=== PATIENT | female | born 1945 | race Caucasian/White ===

== ENCOUNTER 2024-11-29 10:57 | Inpatient (IN) | payer OTHER ==
[~2024-11-29] VITALS: Ht 160 cm; Wt 119.0 kg
--- NOTE | 2024-11-29 11:22 | ED.PDOC ---
GI ASSESSMENT HPI Comments 79y F who presents to the ED for chief complaint of diarrhea. - pt states she recently returned from 16 day cruise from [place] last Sunday and states that the following day Sunday is her onset of symptoms of diarrhea. - pt describes the diarrhea as "hollins and watery" and states she has to go to the restroom, whenever she stands up - pt states she thinks she had C Diff associated diarrhea because last time she had similar diarrhea, she states he was dx with C Diff she does said she has similar diarrhea. - pt denies any associated nausea, vomiting, fever, cough, chills, dysuria, hematuria, or abdominal pain. - pt otherwise states she feels dehydrated in the ED, - pt denies use of any current antibiotics at this time Past Medical History: AFIB, CHF, hyperlipidemia Past Surgical History: pacemaker, appendectomy, cholecystectomy medications: Coumadin, patient has stopped taking her Lasix for few days allergies: nkda Social History: denies tobacco use, endorses ETOH use, denies drug use HPI: Poor Historian. REVIEW OF SYSTEMS: CONSTITUTIONAL: Denies acute: fever, diaphoresis, chills, HEAD: Denies acute: headache, photophobia Eyes: Denies acute: Double vision, vision loss, eye pain, eye discharge. EARS: Denies acute: tinnitus, hearing loss, ear discharge, ear pain, THROAT: Denies acute: sore throat, swelling, difficulty swallowing , pain with swallowing, change in voice. NECK: Denies acute: neck pain, neck swelling, stiff neck. HEART: Denies acute : chest pain, palpitations, LUNGS: Denies acute: SOB, wheezing, cough, hemoptysis ABDOMEN: Denies acute: abdominal pain, Nausea, Vomiting, , melena , hematemesis, hematochezia SKIN: Denies acute: rash, redness, lesions, itchiness. EXTREMITIES: Denies acute: calf pain, numbness, tingling, weakness, denies pain in extremity. Denies acute: Low back pain. Neuro: Denies acute: focal neurological deficit, motor or sensory focal neurological deficit, tremors, seizure like activity, confusion, dizziness, change in mental status, loss of bowel or bladder function, cauda equina like symptoms. : Denies acute: dysuria, hematuria, flank pain, increase in urinary frequency. PSYCH: Denies acute: hallucination, suicidal ideation, homicidal ideation. FEMALE: Denies acute: abnormal vaginal bleeding, foul odor, unusual discharge. PHYSICAL EXAM: General: no acute distress, awake and alert. Head: normocephalic, atraumatic. Neck: supple, trachea is midline, no swelling. Throat: Normal phonation. Eyes:, no erythema, no purulent discharge, no proptosis, no icterus. Heart: regular rate, regular rhythm, no significant murmur appreciated. Lungs: no apparent respiratory distress, Able to speak in full sentences. No wheezing, no rhonchi, no crackles. No stridors Clear to auscultation bilaterally. Abdomen: non tender to palpation, non distended, soft, no guarding, no rebound, + bowel sounds. Morbidly obese Neuro: Awake, Alert, oriented to name, self, situation, follows commands GCS=15. Speech is normal. Skin: no petechia, no purpura, no cyanosis, non-pale, not jaundice. Lower extremities: --trace bilateral- Pitting edema no deformity, no focal swelling, no calf TTP. Makes eye contact. moves all four extremities. Face: no apparent facial droop. ED COURSE: Chief Complaint: Diarrhea Time Seen by MD: 11:21 Reviewed Notes: Nurses Notes, Medications, Allergies Allergies: Uncoded Allergies: ELIQUIS (Allergy, Unknown, 11/29/24) SULFA (Allergy, Unknown, 11/29/24) Home Meds Reported Medications Esomeprazole Magnesium (Esomeprazole Magnesium Dr) 20 Mg Cap, 1 CAP PO QAM 11/29/24 Metoprolol Succinate (Metoprolol Succinate Er) 25 Mg Tab, 0.5 TAB PO DAILY 11/29/24 Potassium Chloride (Klor-Con 10) 10 Meq Tab 11/29/24 Gabapentin (Gabapentin) 300 Mg Cap, CAP PO 11/29/24 Warfarin Sodium (Warfarin Sodium) 5 Mg Tab, PO 11/29/24 Atorvastatin Calcium (ATORVASTATIN CALCIUM) 40 Mg Tab 11/29/24 Information Source: Patient Mode of Arrival: Wheelchair Brought in by: self Was a procedure done? Was a procedure done?: No GI differential Dx Differential Diagnosis: Gastroenteritis, Ischemic Bowel, Dehydration, Electrolyte Imbalance, Food Poisoning, Bacterial, Parasitic, Viral, Other X-Ray, Labs, Meds, VS Vital Signs Date Time Temp Pulse Resp B/P (MAP) Pulse Ox O2 Delivery O2 Flow Rate FiO2 11/29/24 13:41 98.6 70 16 150/83 (105) 94 98.6 11/29/24 11:52 64 16 94 Room Air* 0 21 11/29/24 11:49 64 16 94 Room Air 11/29/24 11:49 97.7 64 16 153/77 (102) 94 97.7 11/29/24 11:10 98.4 86 18 151/78 (102) 91 98.4 Lab Test 11/29/24 11:28 11/29/24 11:12 11/29/24 00:00 Range/Units White Blood Count 6.6 4.4-10.8 10^3/uL Red Blood Count 4.86 4.0-5.20 10^6/uL Hemoglobin 13.7 12.2-16.2 g/dL Hematocrit 41.7 36.0-46.0 % Mean Corpuscular Volume 85.8 80.0-100.0 fL Mean Corpuscular Hemoglobin 28.2 28.0-32.0 pg Mean Corpuscular Hemoglobin Concent 32.8 32.0-36.0 g/dL Red Cell Distribution Width 16.9 H 11.8-14.3 % Platelet Count 145 140-450 10^3/uL Mean Platelet Volume 6.4 L 6.9-10.8 fL Neutrophils (%) (Auto) 70.2 37.0-80.0 % Lymphocytes (%) (Auto) 18.9 10.0-50.0 % Monocytes (%) (Auto) 9.7 0.0-12.0 % Eosinophils (%) (Auto) 0.4 0.0-7.0 % Basophils (%) (Auto) 0.8 0.0-2.0 % Neutrophils # (Auto) 4.6 1.6-8.6 10 ^3/uL Lymphocytes # (Auto) 1.2 0.4-5.4 10 ^3/uL Monocytes # (Auto) 0.6 0-1.3 10 ^3/uL Eosinophils # (Auto) 0 0-0.8 10 ^3/uL Basophils # (Auto) 0.1 0-0.2 10 ^3/uL Nucleated Red Blood Cells 0.2 % Prothrombin Time 14.0 H 9.3-11.8 sec Prothrombin Time INR 1.36 H 0.9-1.15 Activated Partial Thromboplast Time 33.9 24.5-34.5 SEC Sodium Level 139 136-145 mmol/L Potassium Level 3.8 3.5-5.1 mmol/L Chloride Level 105 98-107 mmol/L Carbon Dioxide Level 23 20-31 mmol/L Anion Gap 11 5-15 Blood Urea Nitrogen 19 9-23 mg/dL Creatinine 0.90 0.550-1.02 mg/dL Glomerular Filtration Rate Calc 66 >90 mL/min BUN/Creatinine Ratio 21.1 H 10.0-20.0 Serum Glucose 107 H 74-106 mg/dL Lactic Acid Level 1.5 0.4-2.0 mmol/L Calcium Level 9.0 8.7-10.4 mg/dL Total Bilirubin 1.5 H 0.2-1.0 mg/dL Aspartate Amino Transferase (AST) 60 H 13-40 U/L Alanine Aminotransferase (ALT) 51 H 7-40 U/L Alkaline Phosphatase 157 H 46-116 U/L C-Reactive Protein High Sensitivity 0.69 <1.0 mg/dL B-Type Natriuretic Peptide 155.55 0-100 pg/mL Total Protein 6.3 5.7-8.2 g/dL Albumin 4.0 3.2-4.8 g/dL Lipase 67 H 12-53 U/L Urine Color Yellow Yellow Urine Clarity Turbid H Clear Urine pH 5.5 5.0-9.0 Urine Specific [place] 1.035 1.001-1.035 Urine Protein 1+ H Negative Urine Ketones 1+ H Negative Urine Blood Negative Negative /uL Urine Nitrite 2+ H Negative Urine Bilirubin Negative Negative Urine Urobilinogen Normal Negative mg/dL Urine Leukocyte Esterase 2+ Negative /uL Urine RBC 2 0 - 4 /hpf Urine Microscopic WBC 13 H 0-5 /HPF Urine Squamous Epithelial Cells Few <5 /hpf Urine Bacteria Few H None Seen /hpf Urine Mucus Few None Seen Urine Glucose 4+ H Normal mg/dL Stool for White Cells Moderate Microbiology Date/Time Source Procedure Growth Status 11/29/24 00:00 Stool Received Current Medications Medications (Trade) Dose Ordered Sig/Jessica Route Start Time Stop Time Status Last Admin Ciprofloxacin 200 ml @ 200 mls/hr ONCE ONCE IV 11/29/24 14:45 11/29/24 15:44 DC 11/29/24 15:[address] [address] Ph: [phone] DIAGNOSTIC IMAGING Diagnostic Imaging Report : [id number] Signed PATIENT: CELESTINO WRIGHT ACCT: [id number] UNIT: [id number] : 1945 LOC: ER ROOM / BED: / AGE / SEX: 79 / F ADM STATUS: REG ER SERVICE 1113 ORDERING PHYSICIAN: ROBERT GARCIA DO PROCEDURE(s): ABPL - CT AB PEL WO CON-NO ORAL OR IV REASON: diarrhea, h/o c diff ORDER NUMBER(s): [id number], ACCESSION NUMBER(s): [id number] Exam: CT CT AB PEL WO CON-NO ORAL OR IV History: diarrhea, h/o c diff Comparison Study: None Technique: Multidetector spiral CT of the abdomen was performed from lung bases to pubic symphysis. Imaging was performed without IV contrast. Axial, coronal and sagittal multiplanar reformats were obtained from the axial data set by the technologist. Radiation Dose : 1. Abdomen/Pelvis: CTDIvol 27 mGy, DLP 1350 mGy*cm. Findings: Evaluation of solid organs is limited due to lack of intravenous contrast use. Lung Bases: Subsegmental atelectasis at the left lung base. Mild ground-glass opacity in the right lung base may be due to atelectasis/poor inspiration. Postsurgical change of the partially visualized heart. Liver: The liver is normal in size. No focal lesions. Gallbladder and Biliary Tree: Gallbladder is surgically absent. Spleen: Unremarkable Pancreas: The pancreas is grossly normal in appearance. Adrenal Glands: Unremarkable Kidneys: No evidence of hydronephrosis or renal calculi. Small calcification in the right renal hilum appears vascular in nature. Bladder: Grossly unremarkable for degree of distention. Bowel: Small hiatal hernia. Postsurgical changes of the stomach. No significant small or large bowel dilation. Surgical anastomosis of small bowel segments in the left mid abdomen. The colon is partially filled with fluid. No significant colonic wall thickening. There is postsurgical changes at the cecum. The appendix is surgically absent. There is a fluid-filled tubular structure as sociated with postsurgical changes at the cecum that measures up to 1.2 cm in diameter (series 2, image 44). There is no surrounding fat stranding. Mild colonic diverticulosis without evidence of diverticulitis. Ascites: Absent Lymphadenopathy: No mesenteric, retroperitoneal or periportal lymphadenopathy. Abdominal Wall and Mesentery: Postsurgical changes of the ventral abdominal wall. Vasculature: The visualized abdominal aorta is normal in size and caliber. Evaluation of abdominal and pelvic vessels is limited due to lack of intravenous contrast. Pelvic Organs: Unremarkable Musculoskeletal: No evidence of acute osseous abnormalities. [id number] multilevel degenerative disc changes in the visualized spine, worst at L5-S1. Minimal anterolisthesis L3/L4. IMPRESSION: 1. Fluid in the colon is consistent with history of diarrheal illness. No significant bowel wall thickening. No bowel obstruction. 2. Postsurgical changes of the stomach, small bowel, and cecum. There is a somewhat tubular fluid-filled structure along the cecum which is likely related to postsurgical change. Given the diameter of this structure (1.2 cm) a stump appendicitis can not be entirely excluded; however, this is considered unlikely as there is no correlating inflammatory changes. Clinical correlation recommended. Radiation optimization: All CT scans at this facility use at least one of these dose optimization techniques: automated exposure control mA and/or kV adjustment per patient size (includes targeted exams where dose is matched to clinical indication) or iterative reconstruction. ATED BY: PAOLA IBARRA DO DICTATED DATE/TIME: 11/29/24 1222 SIGNED BY: PAOLA IBARRA DO SIGNED DATE/TIME: 11/29/24 1222 CC: Time of 1ST Reevaluation: 20:48 Reevaluation 1ST: Improved Patient Education/Counseling: Diagnosis, Treatment Family Education/Counseling: No Family Present Comments Patient presented with the above HPI.--diarrhea----workup was initiated. patient was found with the above mentioned diagnosis. the following medications were ordered: please refer to order lists of meds and tests obtained by myself Dr. Garcia. Patient ED course and VS have been stabilized. Patient has been reassessed in the ED and remained in a stable condition. Pertinent incidental findings were discussed with the patient and/or family. Patient/family voices understanding and is agreeable with plan. Patient has been observed in the ED adequate length of time to insure improvement/stability. Escalation of care considered: Consideration of escalation to observation or admission Patient was ADMITTED to the medicine team for further evaluation and treatment of their presentation. Infectious diarrhea All the reports of any imaging studies that were ordered by myself were reviewed by myself. Departure 1 Departure Time of Disposition: 13:45 Impression: Primary Impression: UTI (urinary tract infection) Qualified Codes: N39.0 - Urinary tract infection, site not specified Additional Impression: Infectious diarrhea in adult patient Disposition: ADMITTED INPATIENT Admit to: Tele Condition: Guarded Discharged With: Self Critical Care Note Critical Care Time?: No I personally scribed for ROBERT GARCIA DO ([email or web address]) on 11/29/24 at 11:22. Electronically submitted by [employer] ([email or web address]). I personally scribed for ROBERT GARCIA DO ([email or web address]) on 11/29/24 at 14:00. Electronically submitted by [employer] (SAL). ROBERT GARCIA DO Nov 29, 2024 11:22
[2024-11-29 11:37] LABS: Basophils # (auto) 0.1 10 ^3/uL (0-0.2); Basophils % (auto) 0.8 % (0.0-2.0); Eosinophils # (auto) 0 10 ^3/uL (0-0.8); Eosinophils % (auto) 0.4 % (0.0-7.0); Hematocrit 41.7 % (36.0-46.0); Hemoglobin 13.7 g/dL (12.2-16.2); Lymphocytes # (auto) 1.2 10 ^3/uL (0.4-5.4); Lymphocytes % (auto) 18.9 % (10.0-50.0); Mean Corpuscular Hemoglobin 28.2 pg (28.0-32.0); Mean Corpuscular Hgb Conc. 32.8 g/dL (32.0-36.0); Mean Corpuscular Volume 85.8 fL (80.0-100.0); Monocytes # (auto) 0.6 10 ^3/uL (0-1.3); Monocytes % (auto) 9.7 % (0.0-12.0); Neutrophils # (auto) 4.6 10 ^3/uL (1.6-8.6); Neutrophils % (auto) 70.2 % (37.0-80.0); Nucleated Red Blood Cells % 0.2 %; Platelet Count (auto) 145 10^3/uL (140-450); Red Blood Cells 4.86 10^6/uL (4.0-5.20); Red Cell Distribution Width 16.9 % (11.8-14.3); White Blood Cell 6.6 10^3/uL (4.4-10.8)
[2024-11-29 11:52] VITALS: PULSE 64; RESP 16; O2SAT 94
[2024-11-29 11:52] LABS: INR 1.36 (0.9-1.15); Partial Thromboplastin Time 33.9 SEC (24.5-34.5)
[2024-11-29 11:55] LABS: Anion Gap 11 (5-15); BUN/Creatinine Ratio 21.1 (10.0-20.0); Blood Urea Nitrogen 19 mg/dL (9-23); CRP High Sensitivity 0.69 mg/dL (<1.0); Carbon Dioxide 23 mmol/L (20-31); Chloride 105 mmol/L (98-107); Potassium 3.8 mmol/L (3.5-5.1); Sodium 139 mmol/L (136-145); Total Protein 6.3 g/dL (5.7-8.2)
[2024-11-29 12:01] LABS: Alanine Aminotransferase 51 U/L (7-40); Alkaline Phosphatase 157 U/L (46-116); Aspartate Aminotransferase 60 U/L (13-40); Bilirubin, Total 1.5 mg/dL (0.2-1.0); Glucose 107 mg/dL (74-106)
--- NOTE | 2024-11-29 12:24 | DVH ---
Exam: CT CT AB PEL WO CON-NO ORAL OR IV History: diarrhea, h/o c diff Comparison Study: None Technique: Multidetector spiral CT of the abdomen was performed from lung bases to pubic symphysis. Imaging was performed without IV contrast. Axial, coronal and sagittal multiplanar reformats were ob tained from the axial data set by the technologist. Radiation Dose : 1. Abdomen/Pelvis: CTDIvol 27 mGy, DLP 1350 mGy*cm. Findings: Evaluation of solid organs is limited due to lack of intravenous contrast use. Lung Bases: Subsegmental atelectasis at the left lung base. Mild ground-glass opacity in the right bayron ng base may be due to atelectasis/poor inspiration. Postsurgical change of the partially visualized h eart. Liver: The liver is normal in size. No focal lesions. Gallbladder and Biliary Tree: Gallbladder is surgically absent. Spleen: Unremarkable Pancreas: The pancreas is grossly normal in appearance. Adrenal Glands: Unremarkable Kidneys: No evidence of hydronephrosis or renal calculi. Small calcification in the right renal hilu m appears vascular in nature. Bladder: Grossly unremarkable for degree of distention. Bowel: Small hiatal hernia. Postsurgical changes of the stomach. No significant small or large bowel dilation. Surgical anastomosis of small bowel segments in the left mid abdomen. The colon is partiall y filled with fluid. No significant colonic wall thickening. There is postsurgical changes at the cec um. The appendix is surgically absent. There is a fluid-filled tubular structure associated with post surgical changes at the cecum that measures up to 1.2 cm in diameter (series 2, image 44). There is no surrounding fat stranding. Mild colonic diverticulosis without evidence of diverticulitis. Ascites: Absent Lymphadenopathy: No mesenteric, retroperitoneal or periportal lymphadenopathy. Abdominal Wall and Mesentery: Postsurgical changes of the ventral abdominal wall. Vasculature: The visualized abdominal aorta is normal in size and caliber. Evaluation of abdominal a nd pelvic vessels is limited due to lack of intravenous contrast. Pelvic Organs: Unremarkable Musculoskeletal: No evidence of acute osseous abnormalities. [id number] multilevel degenerative disc changes in the visualized spine, worst at L5-S1. Minimal anterolisthesis L3/L4. IMPRESSION: 1. Fluid in the colon is consistent with history of diarrheal illness. No significant bowel wall thic kening. No bowel obstruction. 2. Postsurgical changes of the stomach, small bowel, and cecum. There is a somewhat tubular fluid-fi lled structure along the cecum which is likely related to postsurgical change. Given the diameter of this structure (1.2 cm) a stump appendicitis can not be entirely excluded; however, this is considere d unlikely as there is no correlating inflammatory changes. Clinical correlation recommended. Radiation optimization: All CT scans at this facility use at least one of these dose optimization nancy hniques: automated exposure control mA and/or kV adjustment per patient size (includes targeted exam s where dose is matched to clinical indication) or iterative reconstruction.
[2024-11-29 12:46] LABS: Lipase 67 U/L (12-53)
[2024-11-29 12:55] LABS: Urine Bacteria FEW /hpf (None Seen); Urine Blood Negative /uL (Negative); Urine Clarity Turbid (Clear); Urine Color Yellow (Yellow); Urine Mucus FEW (None Seen); Urine Protein, UAD 1+ (Negative); Urine Specific Gravity 1.035 (1.001-1.035); Urine Squamous Epithelial Cell FEW /hpf (<5); Urine Urobilinogen Normal (Negative); Urine WBC 13 /HPF (0-5); Urine pH 5.5 (5.0-9.0)
[2024-11-29] MEDS: CIPROFLOXACIN 400MG/200ML 200 ML IV ONE (15:03)
[2024-11-29] MEDS ORDERED: ONDANSETRON HCL 4 MG/2 ML VIAL IV PRN (15:30)
[2024-11-29] MEDS ORDERED: ACETAMINOPHEN 325 MG TAB PO PRN (15:30)
[2024-11-29] MEDS ORDERED: WARF-66 PO (16:03)
[2024-11-29] MEDS ORDERED: GABA-1250 PO (16:03)
[2024-11-29] MEDS ORDERED: POTA-211 (16:03)
[2024-11-29] MEDS ORDERED: ATOR40TA52 (16:03)
[2024-11-29] MEDS ORDERED: ESOM20CA70 PO (16:03)
[2024-11-29] MEDS ORDERED: METO25TA93 PO (16:03)
--- NOTE | 2024-11-29 16:24 | DVHHP2 ---
History of Present Illness Reason for Visit: Loss of appetite and diarrhea History of Present Illness Judith Díaz is a 79-year-old female with past medical history of hyperlipidemia, AFib on warfarin, CHF, appendectomy, cholecystectomy, tonsillectomy, pacemaker, and gastric bypass who presents to the ED for diarrhea and loss of appetite x3 days. Patient reports that she was recently on a cruise to [place] from [place] to [place] in shortly after started having diarrhea. Patient denies any chest pain, shortness of breath, fever, chills, lightheadedness, weakness, dizziness, nausea, or vomiting. Patient reports that the pacemaker that was placed was in [place] 2 years ago. Also states that she has been getting it checked regularly every 6 months at [place] and battery life is around 7 - 8 years. Cardiovascular: AFIB, CHF, hyperipidemia Past Surgical History: Appendectomy, Cholecystectomy, Other (Pacemaker and gastric bypass surgery), Tonsillectomy Family History: DM, Other (Dad with diabetes and mom with kidney disease) Smoke: No ALCOHOL: none Drugs: None Lives: with Family Domestic Violence: Neg Review of Systems Constitutional: Yes: Other (Loss of appetite) Gastrointestinal: Diarrhea Allergies: Uncoded Allergies: ELIQUIS (Allergy, Unknown, 11/29/24) SULFA (Allergy, Unknown, 11/29/24) Medications Current Medications Medications Dose Ordered Sig/Jessica Route Start Time Stop Time Status Last Admin Dose Admin Ciprofloxacin 200 ml @ 200 mls/hr Q8HR IV 11/29/24 15:30 UNV Acetaminophen/ Hydrocodone Bitart 1 tab Q4HP PRN PO 11/29/24 15:30 UNV Ondansetron HCl 4 mg Q4HP PRN IV 11/29/24 15:30 UNV Acetaminophen 650 mg Q6HP PRN PO 11/29/24 15:30 UNV Gabapentin 300 mg TID PO 11/29/24 22:00 UNV Potassium Chloride 10 meq DAILY PO 11/30/24 10:00 UNV Warfarin Sodium 5 mg DAILY PO 11/30/24 10:00 UNV Patient Own Medication 1 cap QAM PO 11/30/24 07:00 UNV Patient Own Medication 0.5 tab DAILY PO 11/30/24 10:00 UNV Atorvastatin Calcium 40 mg HS PO 11/29/24 22:00 UNV Exam Vital Signs Vital Signs Date Time Temp Pulse Resp B/P (MAP) Pulse Ox O2 Delivery O2 Flow Rate FiO2 11/29/24 15:40 61 11/29/24 15:25 98.2 12 140/71 (94) 95 98.2 11/29/24 11:52 Room Air* 0 21 General Appearance: Alert, Oriented X3, Cooperative, No acute distress HEENT: Atraumatic, PERRLA, EOMI, Mucous membr. moist/pink Respiratory: Normal air movement Cardiovascular: Regular rate, Normal S1 Abdominal: Soft Extremities: No clubbing, No cyanosis, No edema Skin: No significant lesion Neuro: Normal speech, Strength at 5/5 X4 ext, Normal tone, Sensation intact Psych/Mental Status: Mental status NL, Mood NL Labs/Xrays Labs Test 11/29/24 11:28 11/29/24 11:12 11/29/24 00:00 Range/Units White Blood Count 6.6 4.4-10.8 10^3/uL Red Blood Count 4.86 4.0-5.20 10^6/uL Hemoglobin 13.7 12.2-16.2 g/dL Hematocrit 41.7 36.0-46.0 % Mean Corpuscular Volume 85.8 80.0-100.0 fL Mean Corpuscular Hemoglobin 28.2 28.0-32.0 pg Mean Corpuscular Hemoglobin Concent 32.8 32.0-36.0 g/dL Red Cell Distribution Width 16.9 H 11.8-14.3 % Platelet Count 145 140-450 10^3/uL Mean Platelet Volume 6.4 L 6.9-10.8 fL Neutrophils (%) (Auto) 70.2 37.0-80.0 % Lymphocytes (%) (Auto) 18.9 10.0-50.0 % Monocytes (%) (Auto) 9.7 0.0-12.0 % Eosinophils (%) (Auto) 0.4 0.0-7.0 % Basophils (%) (Auto) 0.8 0.0-2.0 % Neutrophils # (Auto) 4.6 1.6-8.6 10 ^3/uL Lymphocytes # (Auto) 1.2 0.4-5.4 10 ^3/uL Monocytes # (Auto) 0.6 0-1.3 10 ^3/uL Eosinophils # (Auto) 0 0-0.8 10 ^3/uL Basophils # (Auto) 0.1 0-0.2 10 ^3/uL Nucleated Red Blood Cells 0.2 % Prothrombin Time 14.0 H 9.3-11.8 sec Prothrombin Time INR 1.36 H 0.9-1.15 Activated Partial Thromboplast Time 33.9 24.5-34.5 SEC Sodium Level 139 136-145 mmol/L Potassium Level 3.8 3.5-5.1 mmol/L Chloride Level 105 98-107 mmol/L Carbon Dioxide Level 23 20-31 mmol/L Anion Gap 11 5-15 Blood Urea Nitrogen 19 9-23 mg/dL Creatinine 0.90 0.550-1.02 mg/dL Glomerular Filtration Rate Calc 66 >90 mL/min BUN/Creatinine Ratio 21.1 H 10.0-20.0 Serum Glucose 107 H 74-106 mg/dL Lactic Acid Level 1.5 0.4-2.0 mmol/L Calcium Level 9.0 8.7-10.4 mg/dL Total Bilirubin 1.5 H 0.2-1.0 mg/dL Aspartate Amino Transferase (AST) 60 H 13-40 U/L Alanine Aminotransferase (ALT) 51 H 7-40 U/L Alkaline Phosphatase 157 H 46-116 U/L C-Reactive Protein High Sensitivity 0.69 <1.0 mg/dL B-Type Natriuretic Peptide 155.55 0-100 pg/mL Total Protein 6.3 5.7-8.2 g/dL Albumin 4.0 3.2-4.8 g/dL Lipase 67 H 12-53 U/L Urine Color Yellow Yellow Urine Clarity Turbid H Clear Urine pH 5.5 5.0-9.0 Urine Specific [place] 1.035 1.001-1.035 Urine Protein 1+ H Negative Urine Ketones 1+ H Negative Urine Blood Negative Negative /uL Urine Nitrite 2+ H Negative Urine Bilirubin Negative Negative Urine Urobilinogen Normal Negative mg/dL Urine Leukocyte Esterase 2+ Negative /uL Urine RBC 2 0 - 4 /hpf Urine Microscopic WBC 13 H 0-5 /HPF Urine Squamous Epithelial Cells Few <5 /hpf Urine Bacteria Few H None Seen /hpf Urine Mucus Few None Seen Urine Glucose 4+ H Normal mg/dL Stool for White Cells Moderate Microbiology Date/Time Source Procedure Growth Status 11/29/24 00:00 Stool Received Exam: CT CT AB PEL WO CON-NO ORAL OR IV History: diarrhea, h/o c diff Comparison Study: None Technique: Multidetector spiral CT of the abdomen was performed from lung bases to pubic symphysis. Imaging was performed without IV contrast. Axial, coronal and sagittal multiplanar reformats were obtained from the axial data set by the technologist. Radiation Dose : 1. Abdomen/Pelvis: CTDIvol 27 mGy, DLP 1350 mGy*cm. Findings: Evaluation of solid organs is limited due to lack of intravenous contrast use. Lung Bases: Subsegmental atelectasis at the left lung base. Mild ground-glass opacity in the right lung base may be due to atelectasis/poor inspiration. Postsurgical change of the partially visualized heart. Liver: The liver is normal in size. No focal lesions. Gallbladder and Biliary Tree: Gallbladder is surgically absent. Spleen: Unremarkable Pancreas: The pancreas is grossly normal in appearance. Adrenal Glands: Unremarkable Kidneys: No evidence of hydronephrosis or renal calculi. Small calcification in the right renal hilum appears vascular in nature. Bladder: Grossly unremarkable for degree of distention. Bowel: Small hiatal hernia. Postsurgical changes of the stomach. No significant small or large bowel dilation. Surgical anastomosis of small bowel segments in the left mid abdomen. The colon is partially filled with fluid. No significant colonic wall thickening. There is postsurgical changes at the cecum. The appendix is surgically absent. There is a fluid-filled tubular structure associated with postsurgical changes at the cecum that measures up to 1.2 cm in diameter (series 2, image 44). There is no surrounding fat stranding. Mild colonic diverticulosis without evidence of diverticulitis. Ascites: Absent Lymphadenopathy: No mesenteric, retroperitoneal or periportal lymphadenopathy. Abdominal Wall and Mesentery: Postsurgical changes of the ventral abdominal wall. Vasculature: The visualized abdominal aorta is normal in size and caliber. Evaluation of abdominal and pelvic vessels is limited due to lack of intravenous contrast. Pelvic Organs: Unremarkable Musculoskeletal: No evidence of acute osseous abnormalities. [id number] multilevel degenerative disc changes in the visualized spine, worst at L5-S1. Minimal anterolisthesis L3/L4. IMPRESSION: 1. Fluid in the colon is consistent with history of diarrheal illness. No significant bowel wall thickening. No bowel obstruction. 2. Postsurgical changes of the stomach, small bowel, and cecum. There is a somewhat tubular fluid-filled structure along the cecum which is likely related to postsurgical change. Given the diameter of this structure (1.2 cm) a stump appendicitis can not be entirely excluded; however, this is considered unlikely as there is no correlating inflammatory changes. Clinical correlation recommended. Assessment/Plan Assessment/Plan Assessment Intractable diarrhea UTI Hyperbilirubinemia Transaminitis Morbid obesity History of hyperlipidemia History of AFib on warfarin History of CHF History of appendectomy History of tonsillectomy History of cholecystectomy History of bypass History of pacemaker placed in [place] 2 and half years ago, was last checked in [place] and checked every 6 months. Patient states that she has about 7 to 8 years of battery life left Plan Admit to med [facility] [place] IV antibiotics-Cipro Stool culture Urine culture C diff Ova parasite BNP EKG CT abdomen pelvis PT/GYNs PT/PTT CRP Lipase UA Lactic Echo ordered Discussed plan of care with patient and nurse DVT prophylaxis-patient on warfarin PUD prophylaxis-Protonix Home medications reconciled Counseled patient on lifestyle modifications, diet, and exercise Plan discussed with: Patient My Orders Orders - VANIA WILHELM TIRE CHANGER Procedure Category Date Status Time Ciprofloxacin PHA 11/29/24 Logged 400mg/200ml (Cipro Iv) 15:30 Admit ADMIT 11/29/24 Transmitted 15:19 Allergies ANALIA 11/29/24 In Process 15:19 Code Status CODE 11/29/24 Transmitted 15:19 Hydrocodone-Acet PHA 11/29/24 Logged 5/325mg Tab ([place] 15:30 Ondansetron Hcl PHA 11/29/24 Logged (Zofran) 15:30 Complete Blood Count LAB 11/30/24 Verified 04:00 Comprehensive LAB 11/30/24 Verified Metabolic Panel 04:00 Cardiac DIET 11/29/24 Transmitted Diet-2gna,Lofat,Lochol Dinner Echo 2d Mode Cardiac US 11/29/24 Logged DOP 15:19 Acetaminophen Tablet PHA 11/29/24 Logged (Tylenol Tablet) 15:30 Gabapentin Capsule PHA 11/29/24 Logged (Neurontin Capsule) 22:00 Potassium Er Tablet PHA 11/30/24 Logged (Klor-Con Tablet) 10:00 Warfarin Sodium PHA 11/30/24 Logged (Coumadin) 10:00 (Nf) Esomeprazole PHA 11/30/24 Logged Magnesium (Esomeprazol 07:00 (Nf) Metoprolol PHA 11/30/24 Logged Succinate (Metoprolol 10:00 Atorvastatin (Lipitor) PHA 11/29/24 Logged 22:00 Date of Service: Nov 29, 2024 Billing Provider: VANIA WILHELM Common Visit Codes: [id number] INP/OBS CARE (HIGH) VANIA WILHELM Nov 29, 2024 16:24
[2024-11-29] MEDS: CIPROFLOXACIN 400MG/200ML 200 ML IV SCH (16:26)
[2024-11-29] MEDS: WARFARIN SODIUM 5 MG TAB PO ONE (17:38)
[2024-11-29] MEDS: ATORVASTATIN 20 MG TAB PO SCH (23:12)
[2024-11-29] MEDS: GABAPENTIN 300 MG CAP PO SCH (23:13)
[2024-11-30] VITALS (10 sets, daily range): BP systolic 119–144; BP diastolic 55–85; PULSE 56–69; RESP 17–20; TEMP 97.4–97.7; O2SAT 90–96
[2024-11-30] MEDS: HYDROcodone-ACET 5/325MG TAB PO PRN (00:20)
--- NOTE | 2024-11-30 01:12 | DVHSR ---
APPROVED REPORT EXAM: Two-dimensional and M-mode echocardiogram with Doppler and color Doppler. Blood Pressure: 140/71 mmHg INDICATION Weakness Surgery/Intervention Pacemaker: Leadless pacemaker RISK FACTORS Obesity: Height: 5'3", Weight: 300 DIMENSIONS LVDd4.6 (3.8-5.7cm)LA (2D)4.0 (1.9-4.0cm)Aortic Root3.4 (2.0-3.7cm) LVDs3.1 (2.5-4.0cm)LA (MM) (1.9-4.0cm)Aortic Cusp Exc1.8 (1.5-2.0cm) EF (%) 60.0 (55-70%)Rt. Atrium4.4 (1.9-4.0cm)Asc. Aorta cm IVSd1.3 (0.7-1.1cm)RV (D) (1.8-2.4cm) PWd1.3 (0.7-1.1cm) Mitral Valve MitralMitral Stenosis E wave1.10m/sMV Mean GR.mmHg A wave0.28m/sMV Peak GR.mmHg E/A ratio3.92D MVAcm2 DECEL [id number] 1/2 Timems Aortic Valve Aortic ValveAortic Stenosis V10.81m/Karlene Mean GR.3mmHg V21.07m/Karlene Peak GR.5mmHg LVOT Diameter2.0 (1.8-2.4cm)Doppler AVA2.38cm2 Pulmonic Valve V20.86m/s Other Information Quality : LimitedRhythm : Technically limited study due to body habitus. Conclusion MODERATE DEGREE LVH AND MODERATE LV DIASTOLIC DYSFUNCTION LV EF IS 60% DYSKINESIS OF IVS MODERATELY DILATED RV NORMAL VALVES NO EFFUSION
[2024-11-30] MEDS ORDERED: METOPROLOL TARTRATE 25 MG TAB PO SCH (10:00)
[2024-11-30] MEDS ORDERED: PANTOPRAZOLE 40 MG TAB PO SCH (10:00)
[2024-11-30 10:20] LABS: Basophils # (auto) 0 10 ^3/uL (0-0.2); Basophils % (auto) 0.5 % (0.0-2.0); Eosinophils # (auto) 0.1 10 ^3/uL (0-0.8); Eosinophils % (auto) 1.3 % (0.0-7.0); Hematocrit 41.4 % (36.0-46.0); Hemoglobin 13.7 g/dL (12.2-16.2); Lymphocytes % (auto) 21.5 % (10.0-50.0); Mean Corpuscular Hemoglobin 28.4 pg (28.0-32.0); Mean Corpuscular Volume 86.1 fL (80.0-100.0); Monocytes # (auto) 0.5 10 ^3/uL (0-1.3); Monocytes % (auto) 9.7 % (0.0-12.0); Neutrophils # (auto) 3.2 10 ^3/uL (1.6-8.6); Nucleated Red Blood Cells % 0.3 %; Platelet Count (auto) 142 10^3/uL (140-450); Red Blood Cells 4.81 10^6/uL (4.0-5.20); Red Cell Distribution Width 16.4 % (11.8-14.3); White Blood Cell 4.7 10^3/uL (4.4-10.8)
[2024-11-30 10:32] LABS: Albumin 3.9 g/dL (3.2-4.8); Anion Gap 10 (5-15); BUN/Creatinine Ratio 17.6 (10.0-20.0); Blood Urea Nitrogen 16 mg/dL (9-23); Calcium 9.2 mg/dL (8.7-10.4); Carbon Dioxide 22 mmol/L (20-31); Chloride 105 mmol/L (98-107); INR 1.62 (0.9-1.15); Partial Thromboplastin Time 35.7 SEC (24.5-34.5); Potassium 3.6 mmol/L (3.5-5.1); Prothrombin Time 16.4 sec (9.3-11.8); Sodium 137 mmol/L (136-145); Total Protein 6.5 g/dL (5.7-8.2)
[2024-11-30] MEDS: POTASSIUM CHL 10 Meq TABLET PO SCH (10:34)
[2024-11-30] MEDS: PANTOPRAZOLE 40 MG/10 ML VIAL INJ IV SCH (10:34)
[2024-11-30 10:57] LABS: Alanine Aminotransferase 42 U/L (7-40); Alkaline Phosphatase 137 U/L (46-116); Aspartate Aminotransferase 51 U/L (13-40); Bilirubin, Total 1.4 mg/dL (0.2-1.0); Glucose 164 mg/dL (74-106)
--- NOTE | 2024-11-30 16:29 | DVHPNRES ---
Progress Note Date Seen: Nov 30, 2024 Resident Creating Document: MASOUD HERRERA RESIDENT Has the PT tested + for MRSA If YES, has PT been informed?: No Medical Necessity Reason Pt with a Central, PICC or Fol: No Subjective Review of Systems Ms. Judith Lehman is a 79-year-old female with a past medical history of hyperlipidemia, atrial fibrillation on warfarin, heart failure, status post appendectomy, cholecystectomy, tonsillectomy, gastric bypass surgery, and pacemaker placement two years ago. She presented to the ED with three days of watery diarrhea and loss of appetite following a cruise from [place] to [place] via [place]. She denies other associated symptoms such as fever, nausea, or abdominal pain. She is currently tolerating a mechanical soft diet well. Today, she had a single normal consistency bowel movement. She has a history of C. difficile colitis, and stool testing for C. difficile toxin has been ordered. On exam, her abdomen appears distended. She has a documented allergy to sulfa medications. Additionally, her urinalysis returned positive, and she was started on ciprofloxacin for urinary tract infection. For her chronic neuropathic back pain, she is currently receiving gabapentin 300 mg. Review of Systems: GI: no episodes of diarrhea today; no nausea, vomiting, or abdominal pain : No dysuria or hematuria; UA positive Neuro: Neuropathic back pain Other systems: Negative unless otherwise noted Objective vital signs Vital Sign Date Time Temp Pulse Resp B/P (MAP) Pulse Ox O2 Delivery O2 Flow Rate FiO2 11/30/24 13:29 97.4 63 18 130/70 (90) 94 97.4 11/30/24 08:00 Room Air* 0 21 Total Intake and Output 11/29/24 11/29/24 11/30/24 15:00 23:00 07:00 Intake Total 200 ml 600 ml Balance 200 ml 600 ml medications Current Medications Medications Dose Ordered Sig/Jessica Route Start Time Stop Time Status Last Admin Dose Admin Ciprofloxacin 200 ml @ 200 mls/hr Q8HR IV 11/29/24 15:30 11/30/24 14:05 200 MLS/HR Acetaminophen/ Hydrocodone Bitart 1 tab Q4HP PRN PO 11/29/24 15:30 11/30/24 00:20 1 TAB Ondansetron HCl 4 mg Q4HP PRN IV 11/29/24 15:30 Acetaminophen 650 mg Q6HP PRN PO 11/29/24 15:30 Gabapentin 300 mg TID PO 11/29/24 22:00 11/30/24 05:23 300 MG Potassium Chloride 10 meq DAILY PO 11/30/24 10:00 11/30/24 10:34 10 MEQ Warfarin Sodium 5 mg DAILY PO 11/30/24 10:00 UNV Pantoprazole Sodium 40 mg DAILY PO 11/30/24 10:00 Hold Atorvastatin Calcium 40 mg HS PO 11/29/24 22:00 11/29/24 23:12 40 MG Pantoprazole Sodium 40 mg DAILY IV 11/30/24 10:00 11/30/24 10:34 40 MG Warfarin Sodium RX PROTOCOL PER PHARMACY PO 11/29/24 16:45 Patient Own Medication 12.5 DAILY PO 11/30/24 10:00 Examination General: Elderly woman, alert, cooperative Abdomen: Distended, non-tender, no rebound or guarding Lungs/Cardio: Normal breath sounds, RRR, pacemaker in place Neuro: No focal deficits Skin: No rash laboratory and microbiology Laboratory Tests 11/30/24 09:52 Test 11/30/24 09:52 Range/Units Serum Glucose 164 H 74-106 mg/dL Microbiology Date/Time Source Procedure Growth Status 11/29/24 00:00 Stool Clostridium difficile Toxin Assay - Final Complete Problem List/Assessment/Plan Problem List/Assessment/Plan #Acute diarrheal illness post-cruise travel, resolving #Likely infectious etiology -C. difficile test ordered due to prior history -Maintain hydration, continue soft diet as tolerated #History of C. difficile colitis - Monitor for recurrence - Await toxin assay results #Urinary tract infection - UA positive - Started on ciprofloxacin Q12H - Monitor clinical response #Neuropathic back pain - Continue gabapentin 300 mg #Atrial fibrillation on warfarin - Monitor INR and anticoagulation status #Pacemaker #Morbid obesity - lifestyle modification and dietary habits counseling #Drug allergy: Sulfa case discussed with code status: full code Plan discussed with: Patient Date of Service: Nov 30, 2024 Billing Provider: SOLEDAD COFFEY MD Common Visit Codes: [id number] INP/OBS CARE(HIGH) MASOUD HERRERA RESIDENT Nov 30, 2024 16:29 SOLEDAD COFFEY MD Dec 01, 2024 08:24
[2024-11-30] MEDS: WARFARIN SODIUM 5 MG TAB PO ONE (17:26)
[2024-11-30] MEDS: FAMOTIDINE 20 MG TAB PO SCH (21:49)
[2024-12-01 01:00] VITALS: BP 160/86; PULSE 75; RESP 18; TEMP 97.6; O2SAT 93
[2024-12-01 05:00] VITALS: BP 162/68; PULSE 62; RESP 18; TEMP 98.3; O2SAT 94
[2024-12-01 05:50] LABS: Basophils # (auto) 0 10 ^3/uL (0-0.2); Basophils % (auto) 0.3 % (0.0-2.0); Eosinophils # (auto) 0.1 10 ^3/uL (0-0.8); Eosinophils % (auto) 2.2 % (0.0-7.0); Hematocrit 40.2 % (36.0-46.0); Hemoglobin 13.4 g/dL (12.2-16.2); Lymphocytes # (auto) 1.4 10 ^3/uL (0.4-5.4); Lymphocytes % (auto) 25.2 % (10.0-50.0); Mean Corpuscular Hgb Conc. 33.4 g/dL (32.0-36.0); Mean Corpuscular Volume 86.8 fL (80.0-100.0); Monocytes # (auto) 0.6 10 ^3/uL (0-1.3); Monocytes % (auto) 11.8 % (0.0-12.0); Neutrophils # (auto) 3.3 10 ^3/uL (1.6-8.6); Neutrophils % (auto) 60.5 % (37.0-80.0); Nucleated Red Blood Cells % 0.1 %; Platelet Count (auto) 137 10^3/uL (140-450); Red Blood Cells 4.64 10^6/uL (4.0-5.20); Red Cell Distribution Width 16.3 % (11.8-14.3); White Blood Cell 5.4 10^3/uL (4.4-10.8)
[2024-12-01 06:14] LABS: Alanine Aminotransferase 35 U/L (7-40); Albumin 3.9 g/dL (3.2-4.8); Anion Gap 10 (5-15); BUN/Creatinine Ratio 16.3 (10.0-20.0); Blood Urea Nitrogen 14 mg/dL (9-23); Calcium 9.8 mg/dL (8.7-10.4); Carbon Dioxide 22 mmol/L (20-31); Potassium 3.5 mmol/L (3.5-5.1); Sodium 142 mmol/L (136-145); Total Protein 6.3 g/dL (5.7-8.2)
[2024-12-01 06:16] LABS: Alkaline Phosphatase 123 U/L (46-116); Aspartate Aminotransferase 40 U/L (13-40); Bilirubin, Total 1.3 mg/dL (0.2-1.0); Chloride 110 mmol/L (98-107); Glucose 109 mg/dL (74-106)
[2024-12-01 06:21] LABS: INR 1.97 (0.9-1.15); Partial Thromboplastin Time 36.5 SEC (24.5-34.5); Prothrombin Time 19.5 sec (9.3-11.8)
[2024-12-01 08:00] VITALS: PULSE 64; RESP 16; O2SAT 94
[2024-12-01] MEDS ORDERED: METO25TA5 PO (08:30)
[2024-12-01 08:36] VITALS: BP 157/69; PULSE 64; RESP 16; TEMP 98; O2SAT 94
[2024-12-01] MEDS: LOSARTAN POTASSIUM 25 MG TAB PO ONE (09:42)
[2024-12-01] MEDS ORDERED: LOSARTAN POTASSIUM 25 MG TAB PO SCH (10:00)
[2024-12-01] MEDS: METOPROLOL TARTRATE 25 MG TAB PO SCH (10:00)
[2024-12-01 10:16] LABS: Hepatitis B Surface Antigen Negative (Negative)
[2024-12-01 10:32] LABS: Hepatitis C Antibody Negative (Negative)
--- NOTE | 2024-12-01 11:02 | ECG ---
[facility] Test Date: 2024-11-29 Test Time: 15:40:29 Pat Name: CELESTINO WRIGHT Department: ER Room: 0231 Gender: F Foreign Exchange Clerk: DR GUERRERO: 1945 Requested By: ROBERT GARCIA Order Number: [id number] Reading MD: Measurements Intervals Hines Rate: 61 P: 0 WY: 59 QRS: 268 QRSD: 138 T: 74 QT: 461 QTc: 465 Interpretive Statements Ventricular-paced complexes No further analysis attempted due to paced rhythm Please click the below link to view image of tracing.
[2024-12-01 13:05] VITALS: BP 135/54; PULSE 61; RESP 16; TEMP 98.2; O2SAT 97
[2024-12-01] MEDS ORDERED: CEPH250C PO (13:13)
[2024-12-01 16:33] VITALS: BP 151/87; PULSE 66; RESP 16; TEMP 97.6; O2SAT 96
[2024-12-01] MEDS ORDERED: WARFARIN SODIUM 5 MG TAB PO ONE (17:00)
--- NOTE | 2024-12-01 17:05 | DVHDSRES ---
Discharge Summary Date of Admission Resident Creating Document: MASOUD HERRERA RESIDENT Nov 29, 2024 at 15:19 Date of Discharge: Dec 01, 2024 Admitting Diagnosis Acute intractable diarrhea due to viral gastroenteritis. Labs/Diagnostic Data: Laboratory Results Test 12/01/24 05:10 11/30/24 09:52 11/29/24 11:28 11/29/24 11:12 White Blood Count 5.4 10^3/uL (4.4-10.8) Red Blood Count 4.64 10^6/uL (4.0-5.20) Hemoglobin 13.4 g/dL (12.2-16.2) Hematocrit 40.2 % (36.0-46.0) Mean Corpuscular Volume 86.8 fL (80.0-100.0) Mean Corpuscular Hemoglobin 29.0 pg (28.0-32.0) Mean Corpuscular Hemoglobin Concent 33.4 g/dL (32.0-36.0) Red Cell Distribution Width 16.3 % (11.8-14.3) Platelet Count 137 10^3/uL (140-450) Mean Platelet Volume 6.3 fL (6.9-10.8) Neutrophils (%) (Auto) 60.5 % (37.0-80.0) Lymphocytes (%) (Auto) 25.2 % (10.0-50.0) Monocytes (%) (Auto) 11.8 % (0.0-12.0) Eosinophils (%) (Auto) 2.2 % (0.0-7.0) Basophils (%) (Auto) 0.3 % (0.0-2.0) Neutrophils # (Auto) 3.3 10 ^3/uL (1.6-8.6) Lymphocytes # (Auto) 1.4 10 ^3/uL (0.4-5.4) Monocytes # (Auto) 0.6 10 ^3/uL (0-1.3) Eosinophils # (Auto) 0.1 10 ^3/uL (0-0.8) Basophils # (Auto) 0 10 ^3/uL (0-0.2) Nucleated Red Blood Cells 0.1 % Prothrombin Time 19.5 sec (9.3-11.8) Prothrombin Time INR 1.97 (0.9-1.15) Activated Partial Thromboplast Time 36.5 SEC (24.5-34.5) Sodium Level 142 mmol/L (136-145) Potassium Level 3.5 mmol/L (3.5-5.1) Chloride Level 110 mmol/L (98-107) Carbon Dioxide Level 22 mmol/L (20-31) Anion Gap 10 (5-15) Blood Urea Nitrogen 14 mg/dL (9-23) Creatinine 0.86 mg/dL (0.550-1.02) Glomerular Filtration Rate Calc 70 mL/min (>90) BUN/Creatinine Ratio 16.3 (10.0-20.0) Serum Glucose 109 mg/dL (74-106) Hemoglobin A1c 6.2 % A1C (<5.7) Calcium Level 9.8 mg/dL (8.7-10.4) Total Bilirubin 1.3 mg/dL (0.2-1.0) Aspartate Amino Transferase (AST) 40 U/L (13-40) Alanine Aminotransferase (ALT) 35 U/L (7-40) Alkaline Phosphatase 123 U/L (46-116) Total Protein 6.3 g/dL (5.7-8.2) Albumin 3.9 g/dL (3.2-4.8) Hepatitis B Surface Antigen Negative (Negative) Hepatitis C Antibody Negative (Negative) Lactic Acid Level 1.5 mmol/L (0.4-2.0) C-Reactive Protein High Sensitivity 0.69 mg/dL (<1.0) B-Type Natriuretic Peptide 155.55 pg/mL (0-100) Lipase 67 U/L (12-53) Urine Color Yellow (Yellow) Urine Clarity Turbid (Clear) Urine pH 5.5 (5.0-9.0) Urine Specific [place] 1.035 (1.001-1.035) Urine Protein 1+ (Negative) Urine Ketones 1+ (Negative) Urine Blood Negative /uL (Negative) Urine Nitrite 2+ (Negative) Urine Bilirubin Negative (Negative) Urine Urobilinogen Normal mg/dL (Negative) Urine Leukocyte Esterase 2+ /uL (Negative) Urine RBC 2 /hpf (0 - 4) Urine Microscopic WBC 13 /HPF (0-5) Urine Squamous Epithelial Cells Few /hpf (<5) Urine Bacteria Few /hpf (None Seen) Urine Mucus Few (None Seen) Urine Glucose 4+ mg/dL (Normal) Test 11/29/24 00:00 Stool for White Cells Moderate Other Laboratory Tests 12/01/24 05:10 Brief Hx & Hospital Course: HPI: Ms. Judith Lehman is a 79-year-old female with a past medical history of hyperlipidemia, atrial fibrillation on warfarin, heart failure, status post appendectomy, cholecystectomy, tonsillectomy, gastric bypass surgery, and pacemaker placement two years ago. She presented to the ED with three days of watery diarrhea and loss of appetite following a cruise from [place] to [place] via [place]. She denies other associated symptoms such as fever, nausea, or abdominal pain. Hospital course: Patient was recently on a cruise to [place] from [place] to [place] in shortly after started having diarrhea. Based on the history this was more consistent with viral gastroenteritis for which the patient was managed symptomatically, she was tested for C diff as she was history of C diff colitis, she has a positive urinalysis for which she was started on ciprofloxacin and she was discharged on Keflex for 5 more days. On discharge patient reports not having any urinary symptoms and she started tolerating soft mechanical diet and past bowel movements without any diarrhea. She was recommended to follow up with the primary care doctor within 2 weeks and come to discharge clinic within 1 week. Disposition: Discharge to home. Operations or Procedures [place] [address] Ph: [phone] DIAGNOSTIC IMAGING Diagnostic Imaging Report : [id number] Signed PATIENT: JUDITH WRIGHT ACCT: [id number] UNIT: [id number] : 1945 LOC: ER ROOM / BED: / AGE / SEX: 79 / F ADM STATUS: REG ER SERVICE [id number] ORDERING PHYSICIAN: ROBERT GARCIA DO PROCEDURE(s): ABPL - CT AB PEL WO CON-NO ORAL OR IV REASON: diarrhea, h/o c diff ORDER NUMBER(s): [id number], ACCESSION NUMBER(s): [id number] Exam: CT CT AB PEL WO CON-NO ORAL OR IV History: diarrhea, h/o c diff Comparison Study: None Technique: Multidetector spiral CT of the abdomen was performed from lung bases to pubic symphysis. Imaging was performed without IV contrast. Axial, coronal and sagittal multiplanar reformats were obtained from the axial data set by the technologist. Radiation Dose : 1. Abdomen/Pelvis: CTDIvol 27 mGy, DLP 1350 mGy*cm. Findings: Evaluation of solid organs is limited due to lack of intravenous contrast use. Lung Bases: Subsegmental atelectasis at the left lung base. Mild ground-glass opacity in the right lung base may be due to atelectasis/poor inspiration. Postsurgical change of the partially visualized heart. Liver: The liver is normal in size. No focal lesions. Gallbladder and Biliary Tree: Gallbladder is surgically absent. Spleen: Unremarkable Pancreas: The pancreas is grossly normal in appearance. Adrenal Glands: Unremarkable Kidneys: No evidence of hydronephrosis or renal calculi. Small calcification in the right renal hilum appears vascular in nature. Bladder: Grossly unremarkable for degree of distention. Bowel: Small hiatal hernia. Postsurgical changes of the stomach. No significant small or large bowel dilation. Surgical anastomosis of small bowel segments in the left mid abdomen. The colon is partially filled with fluid. No significant colonic wall thickening. There is postsurgical changes at the cecum. The appendix is surgically absent. There is a fluid-filled tubular structure associated with postsurgical changes at the cecum that measures up to 1.2 cm in diameter (series 2, image 44). There is no surrounding fat stranding. Mild colonic diverticulosis without evidence of diverticulitis. Ascites: Absent Lymphadenopathy: No mesenteric, retroperitoneal or periportal lymphadenopathy. Abdominal Wall and Mesentery: Postsurgical changes of the ventral abdominal wall. Vasculature: The visualized abdominal aorta is normal in size and caliber. Evaluation of abdominal and pelvic vessels is limited due to lack of intravenous contrast. Pelvic Organs: Unremarkable Musculoskeletal: No evidence of acute osseous abnormalities. [id number] multilevel degenerative disc changes in the visualized spine, worst at L5-S1. Minimal anterolisthesis L3/L4. IMPRESSION: 1. Fluid in the colon is consistent with history of diarrheal illness. No significant bowel wall thickening. No bowel obstruction. 2. Postsurgical changes of the stomach, small bowel, and cecum. There is a somewhat tubular fluid-filled structure along the cecum which is likely related to postsurgical change. Given the diameter of this structure (1.2 cm) a stump appendicitis can not be entirely excluded; however, this is considered unlikely as there is no correlating inflammatory changes. Clinical correlation recommended. Radiation optimization: All CT scans at this facility use at least one of these dose optimization techniques: automated exposure control mA and/or kV adjustment per patient size (includes targeted exams where dose is matched to clinical indication) or iterative reconstruction. ATED BY: PAOAL IBARRA DO DICTATED DATE/TIME: 11/29/24 122 SIGNED BY: PAOLA IBARRA DO SIGNED DATE/TIME: 11/29/24 1222 CC: Condition at Discharge: Fair Final Diagnosis/Problems List #Acute diarrheal illness post-cruise travel, resolving #Likely infectious etiology #History of C. difficile colitis #Urinary tract infection #Atrial fibrillation on warfarin #Pacemaker #Morbid obesity #Drug allergy: Sulfa Discharge Disposition: Home SNF Discharge Will this Physician continue t: No Discharge Instruct/Medications Diet: Cardiac 2g Na,low cholest Activity: No Restrictions, As Tolerated Follow Up/Referral: follow up with PCP within 2 weeks dc clinic 1 week Medications: keflex for 5d Discharge Statement: "Patient was advised to return to the ER or call 911 if any headaches, dizziness, shortness of breath, chest pain, abdominal pain, bleeding, fevers, or worsening of medical condition. Patient was counseled about treatment plan, medications, possible side effects, patientverbalized understanding. All questions were answered to the best of my ability. This discharge took greater then 30 minutes in planning, reviewing documentation, counseling the patient, and discussing with other team members." ASSESSMENT ASSESSMENT Assessment acute viral gastroenteritis MASOUD HERRERA RESIDENT Dec 01, 2024 17:05
[2024-12-02] MEDS ORDERED: LOSARTAN POTASSIUM 25 MG TAB PO SCH (10:00)
== END 2024-12-01 16:56 | disposition home or self-care (01) | DRG 392 ==
LOC: ER 11:01 → OVERFLOW 15:19 → EAST 22:50
PROVIDERS: ADMIT Student in an Organized Health Care Education/Training Program; ATTEND Student in an Organized Health Care Education/Training Program
DX: A08.4 Viral intestinal infection, unspecified (principal); N39.0 Urinary tract infection, site not specified; Z68.42 Body mass index [BMI] 45.0-49.9, adult; E66.01 Morbid (severe) obesity due to excess calories; E78.5 Hyperlipidemia, unspecified; I48.91 Unspecified atrial fibrillation; I50.9 Heart failure, unspecified; R74.01 Elevation of levels of liver transaminase levels; Z90.49 Acquired absence of other specified parts of digestive tract; Z98.84 Bariatric surgery status; Z88.2 Allergy status to sulfonamides; Z83.3 Family history of diabetes mellitus; Z95.0 Presence of cardiac pacemaker; Z79.01 Long term (current) use of anticoagulants; Z79.899 Other long term (current) drug therapy
CPT/HCPCS: 36415; 74176; 80053; 81001; 83036; 83605; 83690; 83880; 85025; 85048; 85610; 85730; 86141; 86803; 87045; 87177; 87340; 87427; 87493; 93005; 93306; 96365; G0378; J2470